=== PATIENT | female | born 1955 | race Caucasian/White ===

== ENCOUNTER 2017-10-04 14:43 | Emergency (ER) | payer MEDICARE, BC ==
[2017-10-04 14:51] VITALS: BMI 34.9
[2017-10-04] MEDS ORDERED: Sodium Chloride 0.9% 1,000 ML IV ONE (15:27)
--- NOTE | 2017-10-04 15:31 | C.PDOC ---
History Of Present Illness 61 yo female w/PMHx of NIDDM, HTN come in for evaluation of gradual onset of malaise, subjective fever, chills, headache since yesterday associated with nausea, decrease appetite. Pt denies high fever, lethargy, drooling, dysphagia, dyspnea, CP, SOB, cough, wheezing, abd. pain, vomiting, diarrhea, denies recent travel or known sick contact. Ambulate to ED for evaluation, not in nay apparent distress. HPI: Influenza Time Seen by Provider: 10/04/17 14:55 Chief Complaint: Cough, Cold, Congestion History Per: Patient Onset/Duration Of Symptoms: Days Past Medical History Reviewed: Historical Data, Nursing Documentation, Vital Signs Vital Signs: Last Vital Signs Temp 98.2 F 10/04/17 14:52 Pulse 96 H 10/04/17 14:52 Resp 17 10/04/17 14:52 BP 133/84 10/04/17 14:52 Pulse Ox 98 10/04/17 14:52 - Medical History PMH: Anxiety, Asthma, Diabetes, Gastritis, Gastrointestinal Ulcer, HTN, Osteoporosis, TIA (1997 1998 RIGHT SIDED WEAKNESS) Denies: Chronic Kidney Disease Surgical History: Back Surgery - [facility] Procedures COLONOSCOPY (03/20/15) ESOPHAGOGASTRODUODENOSCOPY [EGD] W/CLOSED BIOPSY (03/20/15) OPEN ROBOTIC ASSISTED PROCEDURE (10/19/13) OTH REMOVE BOTH OVARIES/TUBES (10/19/13) OTHER AND UNSPECIFIED TOTAL ABDOMINAL HYSTERECTOMY (10/19/13) OTHER SKIN & SUBQ I D (02/03/14) REPAIR OF INTESTINE NEC (10/19/13) Family History: States: Unknown Family Hx - Social History Hx Tobacco Use: No Hx Alcohol Use: No Hx Substance Use: No - Immunization History Hx Tetanus Toxoid Vaccination: No Hx Influenza Vaccination: No Hx Pneumococcal Vaccination: No Review Of Systems Except As Marked, All Systems Reviewed And Found Negative. Constitutional: Positive for: Fever (subjective), Chills, Malaise Eyes: Negative for: Vision Change ENT: Positive for: Nose Discharge, Nose Congestion, Throat Pain. Negative for: Ear Pain, Ear Discharge Cardiovascular: Negative for: Chest Pain, Palpitations, Edema, Light Headedness Respiratory: Negative for: Cough, Shortness of Breath, Wheezing Gastrointestinal: Negative for: Nausea, Vomiting, Abdominal Pain, Diarrhea Genitourinary: Negative for: Dysuria, Incontinence Musculoskeletal: Negative for: Neck Pain, Back Pain Skin: Negative for: Rash Neurological: Positive for: Headache. Negative for: Altered Mental Status Physical Exam - Physical Exam Appears: Well, Non-toxic, No Acute Distress Skin: Normal Color, Warm, Dry, No Rash Head: Normacephalic Eye(s): bilateral: PERRL Ear(s): Bilateral: Normal Nose: No Flaring, No Discharge Oral Mucosa: Moist, No Drooling Throat: No Erythema, No Drooling Neck: Trachea Midline, Supple Cardiovascular: Rhythm Regular, No Murmur Respiratory: No Decreased Breath Sounds, No Accessory Muscle Use, No Stridor, No Wheezing Gastrointestinal/Abdominal: Soft, No Tenderness, No Distention, No Guarding Back: No CVA Tenderness Extremity: Normal ROM, No Pedal Edema, No Deformity, No Swelling Neurological/Psych: Oriented x3, Normal Speech - Laboratory Results Result Diagrams: 10/04/17 15:39 10/04/17 15:39 - ECG O2 Sat by Pulse Oximetry: 98 Pulse Ox Interpretation: Normal - Progress ED Course And Treament: Pt was OBS in ED for 2 hours and reports moderate improvement in sx. Pt reports , " hungry", was given food, tolerated well. On re-evaluation, pt is afebrile, hemodynamicaly stable. Non-toxic. Tolerate PO well in ED. PulseOx 98% RA neck: Supple, (-) meningeal sign ENT: no acute findings Lungs: CTA B/L, BS equal B/L. CVS: (+)S1S2, reg. Abd: benign. neurologicaly intact. Blood work review and appears without acute abnormalities. UA(-) Influenza (-) Pt has clinical findings c/w viral illness Parent advised. ref. to f/u with PMD in 2-3 days for re-eval. return to ED if any worsening or new changes. Disposition Counseled Patient/Family Regarding: Studies Performed, Diagnosis, Need For Followup, Rx Given - Disposition Referrals: Ben Kwan [Staff Provider] - Disposition: HOME/ ROUTINE Disposition Time: 16:16 Condition: STABLE Additional Instructions: Encourage fluids Take medication as prescribed tylenol or Ibuprofen as need for pain Follow up with PMD in 2-3 days for re-evaluation. Return to ED if nay worsening or new changes. Prescriptions: Oseltamivir Phosphate [Tamiflu] 75 mg PO BID #10 capsule Instructions: Upper Respiratory Infection (ED) Forms: [facility] (C[place]ican) - Clinical Impression Clinical Impression: Viral disease
[2017-10-04 15:36] LABS: URINE BACTERIA RARE (<OCC); URINE BILIRUBIN NEGATIVE (NEGATIVE); URINE BLOOD NEGATIVE (NEGATIVE); URINE CLARITY Clear (Clear); URINE COLOR Yellow (YELLOW); URINE GLUCOSE (UA) NORMAL (Normal); URINE LEUKOCYTE ESTERASE NEG Leu/uL (Negative); URINE PROTEIN NEGATIVE (NEGATIVE); URINE UROBILINOGEN NORMAL mg/dL (0.2-1.0)
[2017-10-04 15:42] LABS: BASO % 0.8 % (0.0-2.0); EOS # 0.1 K/uL (0.0-0.7); EOS % 1.5 % (0.0-4.0); HEMOGLOBIN 13.5 g/dL (11.0-16.0); MEAN CELL VOLUME 83.9 fL (81.0-99.0); MEAN CORPUSCULAR HEMOGLOBIN 29.3 pg (27.0-31.0); MEAN CORPUSCULAR HGB CONC 34.9 g/dL (33.0-37.0); MEAN PLATELET VOLUME 7.9 fL (7.2-11.7); MONO # 0.3 K/uL (0.0-0.8); MONO % 5.8 % (0.0-10.0); NEUT # 3.1 K/uL (1.8-7.0); NEUT % 69.9 % (50.0-75.0); RBC 4.62 Mil/uL (3.80-5.20); RED CELL DISTRIBUTION WIDTH 14.8 % (11.5-14.5); WHITE BLOOD COUNT 4.4 K/uL (4.8-10.8)
[2017-10-04 15:57] LABS: BLOOD UREA NITROGEN 11 mg/dL (7-17); CALCIUM 8.8 mg/dl (8.6-10.4); GFR AFRICAN-AMERICAN > 60; GFR NON-AFRICAN AMERICAN > 60
[2017-10-04 17:13] VITALS: BP 122/82; PULSE 76; RESP 18; TEMP 98.1; O2SAT 99
== END 2017-10-04 17:11 | disposition home or self-care (01) ==
LOC: C.ER 14:43
DX: B34.9 Viral infection, unspecified (principal); E11.9 Type 2 diabetes mellitus without complications; I10 Essential (primary) hypertension
CPT/HCPCS: 80048; 81001; 85025; 87804; 96361; 96374; 96375; 99283; J1885; J2405; J7040

== ENCOUNTER 2018-08-12 15:37 | Emergency (ER) | payer MEDICARE, OTHER ==
[2018-08-12 15:38] VITALS: BMI 34.9
[2018-08-12 15:48] VITALS: TEMP 99.2
[2018-08-12] MEDS ORDERED: Sodium Chloride 0.9% 1,000 ML IV ONE (16:09)
--- NOTE | 2018-08-12 16:15 | C.PDOC ---
History Of Present Illness 62 y/o female presents to the ED with multiple complaints including abdominal pain, back pain, and chest pain, on and off since Friday. Associated with some SOB and nausea. Patient has a PMHx of diabetes, asthma, hypertension, and s/p hysterectomy. She also complains of having watery loose diarrhea, no bloody or dark stools. Of note, patient reports completing a colonoscopy 3 years ago, and was told she had diverticulosis. She notes history of chronic back problems, including prior back surgery. Patient ambulates with a cane at baseline. Otherwise she denies any extremity weakness, numbness, dysuria, fevers, or incontinence of bowel or bladder. Time Seen by Provider: 08/12/18 15:50 Chief Complaint (Nursing): Chest Pain History Per: Patient History/Exam Limitations: no limitations Onset/Duration Of Symptoms: Intermittent Episodes Current Symptoms Are (Timing): Still Present Quality: Aching Associated Symptoms: Dyspnea Past Medical History Reviewed: Historical Data, Nursing Documentation, Vital Signs Vital Signs: Last Vital Signs Temp 99.2 F 08/12/18 15:46 Pulse 103 H 08/12/18 15:46 Resp 18 08/12/18 15:46 BP 122/77 08/12/18 15:46 Pulse Ox 98 08/12/18 15:46 - Medical History PMH: Anxiety, Asthma, Back Problems, Diabetes, Gastritis, Gastrointestinal Ulc er, HTN, Osteoporosis, TIA (1997 1998 RIGHT SIDED WEAKNESS) Denies: Chronic Kidney Disease Surgical History: Back Surgery Other Surgeries: Colonoscopy - [facility] Procedures COLONOSCOPY (03/20/15) ESOPHAGOGASTRODUODENOSCOPY [EGD] W/CLOSED BIOPSY (03/20/15) OPEN ROBOTIC ASSISTED PROCEDURE (10/19/13) OTH REMOVE BOTH OVARIES/TUBES (10/19/13) OTHER AND UNSPECIFIED TOTAL ABDOMINAL HYSTERECTOMY (10/19/13) OTHER SKIN & SUBQ I D (02/03/14) REPAIR OF INTESTINE NEC (10/19/13) Family History: States: Unknown Family Hx - Social History Hx Tobacco Use: No Hx Alcohol Use: No Hx Substance Use: No - Immunization History Hx Tetanus Toxoid Vaccination: No Hx Influenza Vaccination: Yes Hx Pneumococcal Vaccination: No Review Of Systems Constitutional: Negative for: Fever, Chills Cardiovascular: Positive for: Chest Pain Respiratory: Positive for: Cough, Shortness of Breath Gastrointestinal: Positive for: Nausea, Abdominal Pain, Diarrhea Musculoskeletal: Positive for: Back Pain Neurological: Negative for: Weakness, Altered Mental Status, Dizziness Physical Exam - Physical Exam Appears: Non-toxic, No Acute Distress Skin: Warm, Dry, No Diaphoretic, No Rash Head: Atraumatic, Normacephalic Eye(s): bilateral: Normal Inspection, PERRL, EOMI Oral Mucosa: Moist Neck: Normal ROM Chest: Symmetrical, Tenderness (anterior chest wall tenderness) Cardiovascular: Rhythm Regular, No Murmur Respiratory: Normal Breath Sounds, No Rales, No Rhonchi, No Wheezing, Other (No respiratory distress) Gastrointestinal/Abdominal: Soft, Tenderness (to left side of abdomen), No Dist ention, No Guarding, No Rebound Back: Normal Inspection Extremity: Bilateral: Atraumatic, Normal Color And Temperature Neurological/Psych: Oriented x3, Normal Speech Gait: Steady ED Course And Treatment - Laboratory Results Result Diagrams: 08/12/18 16:10 08/12/18 16:10 Lab Interpretation: No Acute Changes ECG: Interpreted By Ok ECG Rhythm: Sinus Tachycardia ECG Interpretation: Normal Rate From EC O2 Sat by Pulse Oximetry: 98 (RA) Pulse Ox Interpretation: Normal - Radiology CXR: Interpreted by Ok CXR Interpretation: Yes: No Acute Disease - Other Rad CXR X-Ray: Read By Radiologist Interpretation: Accession No. : [id number]. Patient Name / ID : MARY BETH ZAMORANO / [id number]. Exam Date : 08/12/2018 16:07:03 ( Approved ). Study Comment : Sex / Age : F / 62Y. Creator : Joce Faulkner. Dictator : Eris Sales MD. Street Superintendent : History Instructor : Eris Sales MD. Approver2 : Report Date : 08/12/2018 16:12:39. My Comment : . Date of service: 08/12/2018. HISTORY: SOB. COMPARISON: Chest radiographs 06/14/2016. TECHNIQUE: Chest PA and lateral. FINDINGS: LUNGS: No active pulmonary disease. PLEURA: No significant pleural effusion identified. No pneumothorax apparent. CARDIOVAS CULAR: No aortic atherosclerotic calcification present. Normal cardiac size. No pulmonary vascular congestion. OSSEOUS STRUCTURES: No significant abnormalities. VISUALIZED UPPER ABDOMEN: Normal. OTHER FINDINGS: None. IMPRESSION: No interval acute cardiopulmonary disease appreciated. - CT Scan/US CT Abdomen/Pelvis Other Rad Studies (CT/US): Radiology Report Reviewed CT/US Interpretation: Accession No. : [id number]. Patient Name / ID : MARY BETH ZAMORANO / [id number]. Exam Date : 08/12/2018 17:00:06 ( Approved ). Study Comment : Sex / Age : F / 62Y. Creator : Emani Palacios MD. Dictator : Emani Palacios MD. Street Superintendent : History Instructor : Emani Palacios MD. Approver2 : Report Date : 08/12/2018 18:06:28. My Comment : . Date of service: 08/12/2018. PROCEDURE: CT Abdomen and Pelvis without intravenous contrast. HISTORY: Pain. COMPARISON: Comparison is made to the previous study dated 06/14/2016. TECHNIQUE: Axial and reformatted coronal and sagittal CT images of the abdomen and pelvis were obtained without IV or oral contrast administration.. Contrast dose: 0. Radiation dose: Total exam DLP = 963.27 mGy-cm. This CT exam was performed using one or more of the following dose reduction techniques: Automated exposure control, adjustment of the mA and/or kV according to patient size, and/or use of iterative reconstruction technique. FINDINGS: LOWER THORAX: Unremarkable. LIVER: Mild hepatomegaly with findings suggestive of [id number] hepatic steatosis is again noted. GALLBLADDER AND BILE DUCTS: The gallbladder is contracted. No evidence of acute cholecystitis. PANCREAS: Unremarkable. No gross lesion or ductal dilatation. SPLEEN: Unremarkable. ADRENALS: Unre markable. No mass. KIDNEYS AND URETERS: Again noted is nonobstructing renal calculi at the lower pole of the right kidney measures 7 millimeter in the current study. No evidence of hydronephrosis or hydroureter. Again noted is low-attenuation cyst exophytic from the right kidney measures 4 centimeter. VASCULATURE: Unremarkable. No aortic aneurysm. No aortic atherosclerotic calcification or mural plaque present. BOWEL: Unremarkable. No obstruction. No gross mural thickening. APPENDIX: Unremarkable. Normal appendix. PERITONEUM: Unremarkable. No free fluid. No free air. LYMPH NODES: Unremarkable. No enlarged lymph nodes. BLADDER: Unremarkable. REPRODUCTIVE: The uterus and adnexa are not visualized. BONES: The patient is status post internal fixation at lower lumbar spine. OTHER FINDINGS: None. IMPRESSION: Nonobstructing renal calculi at the lower pole of the right kidney. No evidence of hydronephrosis or hydroureter. Progress Note: Treated with IVF NSS, zofran and toradol. On reevaluation abdomen soft non-tender Reassessment Condition: Improved Medical Decision Making Medical Decision Making: Impression: Chest pain, Abdominal pain Plan: - CMP, CBC, cardiac enzymes - UA - EKG - chest x-ray - CT abdomen & pelvis - IV fluids - 4 mg IV zofran Disposition Counseled Patient/Family Regarding: Studies Performed, Diagnosis, Need For Followup, Rx Given - Disposition Referrals: Chao Connor MD [Staff Provider] - Disposition: HOME/ ROUTINE Disposition Time: 18:40 Condition: IMPROVED Additional Instructions: Follow up with PMD for further evaluation Call for appointment Return to ED if any increase symptoms Instructions: Viral Gastroenteritis, Costochondritis, Acute Abdomen (Belly Pain) Forms: [facility] (Yakut) - POA Present On Arrival: None - Clinical Impression Clinical Impression: Abdominal pain, Diarrhea, Chest discomfort - PA / MANAGER OF QUALITY / Resident Statement MD/DO has reviewed & agrees with the documentation as recorded. - Scribe Statement The provider has reviewed the documentation as recorded by the [facility] All medical record entries made by the Scribe were at my direction and personally dictated by me. I have reviewed the chart and agree that the record accurately reflects my personal performance of the history, physical exam, medical decision making, and the department course for this patient. I have also personally directed, reviewed, and agree with the discharge instructions and disposition.
[2018-08-12 16:16] LABS: BASO % 0.8 % (0.0-2.0); EOS # 0.1 K/uL (0.0-0.7); EOS % 3.5 % (0.0-4.0); HEMOGLOBIN 13.5 g/dL (11.0-16.0); LYMPH # 1.2 K/uL (1.0-4.3); LYMPH % 29.2 % (20.0-40.0); MEAN CELL VOLUME 82.7 fL (81.0-99.0); MEAN CORPUSCULAR HEMOGLOBIN 28.2 pg (27.0-31.0); MEAN CORPUSCULAR HGB CONC 34.1 g/dL (33.0-37.0); MEAN PLATELET VOLUME 8.1 fL (7.2-11.7); MONO # 0.2 K/uL (0.0-0.8); MONO % 3.9 % (0.0-10.0); NEUT # 2.7 K/uL (1.8-7.0); NEUT % 62.6 % (50.0-75.0); NRBC % 0.1 % (0.0-2.0); RBC 4.78 Mil/uL (3.80-5.20); RED CELL DISTRIBUTION WIDTH 14.7 % (11.5-14.5); WHITE BLOOD COUNT 4.2 K/uL (4.8-10.8)
[2018-08-12] MEDS ORDERED: Sodium Chloride 0.9% 1,000 ML ONE (16:18)
[2018-08-12 16:42] LABS: URINE BILIRUBIN NEGATIVE (NEGATIVE); URINE BLOOD NEGATIVE (NEGATIVE); URINE CALCIUM OXALATE CRYSTALS OCC /hpf (<OCC); URINE CLARITY Hazy (Clear); URINE COLOR Yellow (YELLOW); URINE GLUCOSE (UA) NORMAL (Normal); URINE LEUKOCYTE ESTERASE NEG Leu/uL (Negative); URINE PROTEIN NEGATIVE (NEGATIVE)
[2018-08-12 16:43] LABS: ALB/GLOB RATIO 1.5 (1.0-2.1); ALBUMIN 4.5 g/dL (3.5-5.0); ALT/SGPT 39 U/L (9-52); AST/SGOT 59 U/L (14-36); BLOOD UREA NITROGEN 13 mg/dL (7-17); GFR NON-AFRICAN AMERICAN > 60; LIPASE 71 U/L (23-300)
[2018-08-12 16:51] VITALS: BP 122/70; PULSE 73; RESP 14
[2018-08-12 16:55] LABS: CK-MB 0.34 ng/mL (0.0-3.38)
--- NOTE | 2018-08-12 17:06 | RAD ---
Date of service: 08/12/2018 HISTORY: SOB COMPARISON: Chest radiographs 06/14/2016. TECHNIQUE: Chest PA and lateral FINDINGS: LUNGS: No active pulmonary disease. PLEURA: No significant pleural effusion identified. No pneumothorax apparent. CARDIOVASCULAR: No aortic atherosclerotic calcification present. Normal cardiac size. No pulmonary vascular congestion. OSSEOUS STRUCTURES: No significant abnormalities. VISUALIZED UPPER ABDOMEN: Normal. OTHER FINDINGS: None. IMPRESSION: No interval acute cardiopulmonary disease appreciated.
[2018-08-12 17:24] VITALS: O2SAT 98
--- NOTE | 2018-08-12 18:09 | CT ---
Date of service: 08/12/2018 PROCEDURE: CT Abdomen and Pelvis without intravenous contrast HISTORY: Pain COMPARISON: Comparison is made to the previous study dated 06/14/2016 TECHNIQUE: Axial and reformatted coronal and sagittal CT images of the abdomen and pelvis were obtained without IV or oral contrast administration.. Contrast dose: 0 Radiation dose: Total exam DLP = 963.27 mGy-cm. This CT exam was performed using one or more of the following dose reduction techniques: Automated exposure control, adjustment of the mA and/or kV according to patient size, and/or use of iterative reconstruction technique. FINDINGS: LOWER THORAX: Unremarkable. LIVER: Mild hepatomegaly with findings suggestive of [id number] hepatic steatosis is again noted. GALLBLADDER AND BILE DUCTS: The gallbladder is contracted. No evidence of acute cholecystitis. PANCREAS: Unremarkable. No gross lesion or ductal dilatation. SPLEEN: Unremarkable. ADRENALS: Unremarkable. No mass. KIDNEYS AND URETERS: Again noted is nonobstructing renal calculi at the lower pole of the right kidney measures 7 millimeter in the current study. No evidence of hydronephrosis or hydroureter. Again noted is low-attenuation cyst exophytic from the right kidney measures 4 centimeter. VASCULATURE: Unremarkable. No aortic aneurysm. No aortic atherosclerotic calcification or mural plaque present. BOWEL: Unremarkable. No obstruction. No gross mural thickening. APPENDIX: Unremarkable. Normal appendix. PERITONEUM: Unremarkable. No free fluid. No free air. LYMPH NODES: Unremarkable. No enlarged lymph nodes. BLADDER: Unremarkable. REPRODUCTIVE: The uterus and adnexa are not visualized. BONES: The patient is status post internal fixation at lower lumbar spine. OTHER FINDINGS: None. IMPRESSION: Nonobstructing renal calculi at the lower pole of the right kidney. No evidence of hydronephrosis or hydroureter.
--- NOTE | 2018-08-14 15:34 | CARD ---
APPROVED REPORT Date of service: 08/12/2018 EKG Measurement Heart [id number] <Conclusion> Sinus tachycardia Otherwise normal ECG
== END 2018-08-12 18:43 | disposition home or self-care (01) ==
LOC: C.ER 15:37
DX: R10.9 Unspecified abdominal pain (principal); R07.89 Other chest pain; R19.7 Diarrhea, unspecified
CPT/HCPCS: 71046; 74176; 80053; 81001; 82553; 83690; 84484; 85025; 93005; 96361; 96374; 96375; 99285; J1885; J2405; J7030

== ENCOUNTER 2018-09-04 12:41 | Emergency (ER) | payer MEDICARE, OTHER ==
[2018-09-04 12:41] VITALS: BMI 34.9
[2018-09-04 12:52] VITALS: BP 126/85; PULSE 93; RESP 18; TEMP 99; O2SAT 97
--- NOTE | 2018-09-04 13:02 | C.PDOC ---
History Of Present Illness 62 y/o female presents to the ED for evaluation of fever, chills, generalized body aches, and productive cough which began last night. Patient states that she took an old tablet of Zithromax last night without relief. She denies abdominal pain, vomiting, diarrhea, and dysuria at this time. Time Seen by Provider: 09/04/18 12:47 Chief Complaint (Nursing): Flu-like Symptoms History Per: Patient History/Exam Limitations: no limitations Onset/Duration Of Symptoms: Hrs Current Symptoms Are (Timing): Still Present Additional History Per: Patient Past Medical History Reviewed: Historical Data, Nursing Documentation, Vital Signs Vital Signs: Last Vital Signs Temp 99 F 09/04/18 12:49 Pulse 93 H 09/04/18 12:49 Resp 18 09/04/18 12:49 BP 126/85 09/04/18 12:49 Pulse Ox 97 09/04/18 12:49 - Medical History PMH: Anxiety, Asthma, Back Problems, Diabetes, Gastritis, Gastrointestinal Ulcer, HTN, Osteoporosis, TIA (1997 1998 RIGHT SIDED WEAKNESS) Denies: Chronic Kidney Disease Surgical History: Back Surgery - [facility] Procedures COLONOSCOPY (03/20/15) ESOPHAGOGASTRODUODENOSCOPY [EGD] W/CLOSED BIOPSY (03/20/15) OPEN ROBOTIC ASSISTED PROCEDURE (10/19/13) OTH REMOVE BOTH OVARIES/TUBES (10/19/13) OTHER AND UNSPECIFIED TOTAL ABDOMINAL HYSTERECTOMY (10/19/13) OTHER SKIN & SUBQ I D (02/03/14) REPAIR OF INTESTINE NEC (10/19/13) Family History: States: Unknown Family Hx - Social History Hx Tobacco Use: No Hx Alcohol Use: No Hx Substance Use: No - Immunization History Hx Tetanus Toxoid Vaccination: No Hx Influenza Vaccination: Yes Hx Pneumococcal Vaccination: No Review Of Systems Constitutional: Positive for: Fever, Chills Respiratory: Positive for: Cough, Sputum Gastrointestinal: Negative for: Vomiting, Abdominal Pain, Diarrhea Musculoskeletal: Positive for: Other (generalized body aches ) Physical Exam - Physical Exam Appears: Non-toxic, Other (in mild distress ) Skin: Normal Color, Warm, Dry Head: Atraumatic, Normacephalic Eye(s): bilateral: Normal Inspection Ear(s): Bilateral: Normal Nose: Normal, No Discharge Oral Mucosa: Moist Throat: Normal, No Erythema, No Exudate Neck: Supple Chest: Symmetrical, No Deformity, No Tenderness Cardiovascular: Rhythm Regular, No Murmur Respiratory: Normal Breath Sounds, No Rales, No Rhonchi, No Wheezing, Other (speaking in full sentences, occasional cough noted ) Gastrointestinal/Abdominal: Soft, No Tenderness, No Guarding, No Rebound Extremity: Normal ROM, Capillary Refill (less than 2 seconds ) Neurological/Psych: Oriented x3, Normal Speech, Normal Cognition ED Course And Treatment O2 Sat by Pulse Oximetry: 97 (on RA ) Pulse Ox Interpretation: Normal - Other Rad CXR X-Ray: Viewed By Me, Read By Radiologist Interpretation: Date of service: 09/04/2018. HISTORY: Cough. COMPARISON: 08/12/2018. TECHNIQUE: Chest PA and lateral. FINDINGS: LINES AND TUBES: None. LUNG AND PLEURA: The lungs are well inflated and clear. No pleural effusion or pneumothorax. HEART AND MEDIASTINUM: The heart is not enlarged. No aortic atherosclerotic calcifications present. The hilar and mediastinal contours are within normal limits. SKELETAL STRUCTURES: The bony structures are within normal limits for the patient's age. VISUALIZED UPPER ABDOMEN: Normal. OTHER FINDINGS: None. IMPRESSION: No active pulmonary disease. Progress Note: Tessalon Perles PO, Naproxen PO and Tamiflu PO given. CXR ordered because patient has productive cough. Results are unremarkable. On reas sessment, patient is resting comfortably, showing no signs of distress and is stable for discharge. Patient is advised to follow up with PMD within 1-2 days for further evaluation. Disposition Counseled Patient/Family Regarding: Studies Performed, Diagnosis, Need For Followup, Rx Given - Disposition Referrals: [facility] [Outside] Disposition: HOME/ ROUTINE Disposition Time: 13:30 Condition: STABLE Additional Instructions: FOLLOW UP WITH YOUR DOCTOR/CLINIC IN 1-2 DAYS USE MEDICATION DIRECTED DRINK PLENTY OF FLUIDS RETURN TO EMERGENCY ROOM IF SYMPTOMS BECOME WORSEN SEGUIR CON NIETO MDICO / CLNICA EN 1-2 JACINTO UTILICE MEDICAMENTOS MAYITO SE DIRIGE BEBER MUCHO LQUIDO VUELVA A LA ANNETTE DE EMERGENCIA SI LOS SNTOMAS EMPEORARAN Prescriptions: Benzonatate [Tessalon Perles] 100 mg PO BID PRN #15 sgl PRN Reason: Cough Naproxen 375 mg PO BID PRN #20 tablet PRN Reason: pain Oseltamivir Phosphate [Tamiflu] 75 mg PO BID #10 capsule Instructions: Viral Syndrome (DC) Forms: [facility] (Mohawk) Print Language: PU[place] RICAN - Clinical Impression Clinical Impression: Viral syndrome - Scribe Statement The provider has reviewed the documentation as recorded by the Scribe (Marlee Avery) Provider Attestation: All medical record entries made by the Scribe were at my direction and personally dictated by me. I have reviewed the chart and agree that the record accurately reflects my personal performance of the history, physical exam, medical decision making, and the department course for this patient. I have also personally directed, reviewed, and agree with the discharge instructions and disposition.
[2018-09-04] MEDS ORDERED: Naproxen 550 mg Tab PO STA (13:14)
--- NOTE | 2018-09-04 13:20 | RAD ---
Date of service: 09/04/2018 HISTORY: Cough COMPARISON: 08/12/2018. TECHNIQUE: Chest PA and lateral FINDINGS: LINES AND TUBES: None. LUNG AND PLEURA: The lungs are well inflated and clear. No pleural effusion or pneumothorax. HEART AND MEDIASTINUM: The heart is not enlarged. No aortic atherosclerotic calcifications present. The hilar and mediastinal contours are within normal limits. SKELETAL STRUCTURES: The bony structures are within normal limits for the patient's age. VISUALIZED UPPER ABDOMEN: Normal. OTHER FINDINGS: None. IMPRESSION: No active pulmonary disease.
[2018-09-04] MEDS ORDERED: Naproxen 550 mg Tab PO ONE (13:23)
== END 2018-09-04 13:37 | disposition home or self-care (01) ==
LOC: C.ER 12:41
DX: B34.9 Viral infection, unspecified (principal); E11.9 Type 2 diabetes mellitus without complications; I10 Essential (primary) hypertension; M81.0 Age-related osteoporosis without current pathological fracture; Z86.73 Personal history of transient ischemic attack (TIA), and cerebral infarction without residual deficits